=== PATIENT | male | born 1985 | race Caucasian/White ===

== ENCOUNTER → 2020-10-07 | Outpatient (CLI) | payer BC ==
[~2020-10-07] VITALS: Ht 177.8 cm; Wt 85.3 kg
[~2020-10-07] MED LIST: NEXIUM 20MG CAP20 MG PO; NO HOME MEDICATIONS; PERCOCET 325 MG1 TA2 PO; PREDNISONE20 MG PO; PRISTIQ 50 MG T50 MG PO; PROAIR HFA0.09 MG/AC IH; ZOFRAN 4MG T4 MG/TAB PO
[2020-10-07 08:46] VITALS: BP 151/87; PULSE 68
[2020-10-07 09:42] VITALS: BP 158/86; PULSE 73
== END ==
LOC: COL.RAD 08:30
DX: M54.5 Low back pain (principal)
CPT/HCPCS: J3301